=== PATIENT | female | born 1985 | race Caucasian/White ===

== ENCOUNTER 2016-10-19 06:00 | Inpatient (IN) | payer OTHER ==
[~2016-10-19 06:00] MED LIST: CALCIUM CARBONATE 500 MG (TUMS) CHEWABLE TABLET PO PRN; CITRIC ACID/SODIUM CITRATE 30 ML CUP PO PRN; Carboprost Inj 250 MCG/ML AMP IM PRN; CefOXitin Inj 2 GM in Sodium Chloride 0.9% 100 ML IV PRN; Famotidine Inj 20 MG in Normal Saline Flush 10 ML IVP PRN; LIDOCAINE W/ SODIUM BICARB 0.5 ML SYR SUBD PRN; Lidocaine 1% 10 MG/ML - 20 ML VIAL SUBCUT PRN; METHYLERGONOVINE MALEATE 0.2 MG/1 ML VIAL IM PRN; MISOPROSTOL 200 MCG TABLET RECTAL PRN; Metoclopramide Inj 10 MG/2 ML VIAL IV PRN; NORMAL SALINE 10 ML SYRINGE FLUSH IVP PRN; ONDANSETRON 4 MG/2 ML VIAL IVP PRN; OXYTOCIN 10 UNIT/1 ML IM PRN; Oxytocin 20 Units + LR 1,000 ML IV SCH; TERBUTALINE SULFATE 1 MG/1 ML SDV SUBCUT PRN; fentaNYL Inj 100 MCG/2 ML VIAL IV PRN
[2016-10-19] MEDS ORDERED: Nalbuphine Inj 20 MG/ML Ampule IVP PRN ×2 (06:44→20:49)
[2016-10-19] MEDS ORDERED: ePHEDrine Inj 5 MG in Normal Saline Flush 1 ML IVP PRN (06:44)
[2016-10-19] MEDS ORDERED: NALOXONE 0.4 MG/1 ML VIAL IVP PRN (06:44)
[2016-10-19] MEDS ORDERED: BUTORPHANOL TARTRATE 2 MG/1 ML VIAL IVP PRN (06:44)
[2016-10-19] MEDS ORDERED: Phenylephrine Inj 50 MCG in Normal Saline Flush 0.5 ML IVP PRN (06:44)
[2016-10-19] MEDS ORDERED: Naloxone Inj 0.01 MG in Normal Saline Flush 1 ML IVP PRN (06:44)
[2016-10-19] MEDS ORDERED: diphenhydrAMINE 50 MG/1 ML VIAL IVP PRN ×2 (06:44→20:49)
[2016-10-19] MEDS: Lactated Ringers-OB Dept 1,000 ML PRIMARY IV SCH ×3 (07:35→17:36)
[2016-10-19 07:53] LABS: HEMATOCRIT 36.5 % (37.0-47.0); HEMOGLOBIN 12.8 g/dL (12.0-16.0); MEAN CORPUSCULAR HGB CONC 35.1 g/dL (33-37); MEAN PLATELET VOLUME 10.9 FL (7.4-12.2); RDW COEFFICIENT OF VARIATION 12.8 % (11.5-14.5); RED BLOOD COUNT 3.76 10^6/uL (4.20-5.40); WHITE BLOOD COUNT 7.4 10^3/uL (4.8-10.8)
[2016-10-19] MEDS: Misoprostol Tab 100 MCG TAB VAGINAL SCH ×2 (07:55→22:36)
--- NOTE | 2016-10-19 17:19 | OB.PROGRES ---
Date and Time of Service: 10/19/16 @ 1230 Interval History: Pt is a 30 yo at 39 3/7 weeks by early u/s who presents for elective induction of labor at term. She has had an uncomplicated thus far, with the exception of a arrhythmia which was noted around 32 weeks. The pt saw MFM in [place] at [facility] and then another MFM at [facility]. A echocardiogram showed PAC's. She has had no evidence of tachyarrhythmias during twice weekly monitoring with the doppler. Upon admission, she was having sporadic contractions, denied vag bleeding or any leakage of fluid. Objective - Cervical Exam Cervical Exam: 60/-2 per RN at 0700 [place]: u/c every 3-4 minutes, palpating mild. Heart Rate: 125, moderate variability. No decels noted. Heart Rate Interpretation Category: Category I - Labs CBC and BMP: 10/19/16 07:35 Labs - Last 24 Hours: Laboratory Results 10/19/16 Range/Units 07:35 WBC 7.40 (4.8-10.8) 10^3/uL RBC 3.76 L (4.20-5.40) 10^6/uL Hgb 12.8 (12.0-16.0) g/dL Hct 36.5 L (37.0-47.0) % MCV 97.1 (81-99) FL MCH 34.0 H (27-31) PG MCHC 35.1 (33-37) g/dL RDW Std Deviation 43.9 (39-50) fL RDW Coeff of Meghna 12.8 (11.5-14.5) % Plt Count 164 (140-350) 10*3/uL MPV 10.9 (7.4-12.2) FL - Vital Signs Last Taken Vital Signs: Vital Signs - Last Taken Temperature 97.5 F 10/19/16 14:46 Pulse Rate 92 10/19/16 07:00 Respiratory Rate 18 10/19/16 07:00 Blood Pressure 114/66 10/19/16 07:00 Pulse Ox 98 10/19/16 07:51 Assessment and Plan - Patient Problems (1) Elective induction of labor planned Current Visit: Yes Status: Acute - Assessment / Plan Additional Assessment/Plan Details: -GBS negative. -pt has received 1 dose of cytotec and is now christian regularly. Will AROM early this afternoon. -pt plans to labor naturally for now, may get an epidural later. -h/o premature atrial contractions: I have been in touch with [facility] EMILIA Matson today (the physicians were in a meeting) and she states that the biggest issues that they have with these types of pts is that they will occasionally convert into SVT. This usually happens in-utero and not after delivery. We will get an EKG on the baby several hours after delivery if he is otherwise stable. -anticipate normal vaginal delivery.
[2016-10-19] MEDS ORDERED: LIDOCAINE MPF 2% - 5 ML (20 MG/1 ML) ONE ×2 (17:25→17:49)
--- NOTE | 2016-10-19 17:35 | CRNA.PROCE ---
Central Neuraxis Block [facility] - - Safety Measures: Site Verified - - Type of Block: Epidural ( labor, Now 5-6 cm. Membranes ruptured by Huseyin @ 1315. Requesting analgesia.) Reason for Block: Analgesia Moniters Used During Block: SPO2, NIBP Positioning: Sitting Skin Prep Used: ChloroPrep Draped: Yes Skin Infiltration - Enter Amount Used in Comment Field: 1% Xylocaine (mL): Yes ( 1.5 ml) Introducer User: None Spinal Needle Used: 18 Hustead 80 mm (AURA with saline. Epidural space times once. test dose 4 ml of 1.5% lido with epi 1:200K. Negative for SAB, negative for IV.) Local Anesthetic - Enter Amount Used in Comment Field: 1.5 % Xylocaine with Epinephrine 1:200,000 (mL): Yes (4.5 ) Number of Centimeters Catheter Threaded: 4 Bioclusive Dressing Applied: Yes - - Additional Details: Pt and staff expect rapid progress so will incrermentally dose epidural vs infusion. 5 ml Lido MPF @1715. 5 ml Lido MPF @ 1734. Not the rapid complete relief expected. 5 ml of 2% Lido mpf @1750 via epidural. 50 mcgs of Fentanyl in epidural @1750. Zana Marlow MS, [employer]
[2016-10-19] MEDS ORDERED: fentaNYL Inj 100 MCG/2 ML VIAL ONE (17:49)
[2016-10-19] MEDS ORDERED: Chloroprocaine 3% MPF (30mg/ml) 20ml vial ONE (18:30)
--- NOTE | 2016-10-19 18:47 | CRNA.PROGR ---
Anesthesia Note Anesthesia Progress Note: Dosed epidural with 6 ml of 3% Nesacaine and 50 mcgs Fentanyl at 1828.
[2016-10-19] MEDS ORDERED: Lidocaine Inj 1% 20 ML ONE ×2 (19:39→21:17)
[2016-10-19] MEDS ORDERED: METHYLERGONOVINE MALEATE 0.2 MG/1 ML VIAL IM PRN (20:49)
[2016-10-19] MEDS ORDERED: HYDROcodone-APAP 5 MG -325 MG TABLET PO PRN (20:49)
[2016-10-19] MEDS ORDERED: ONDANSETRON 4 MG/2 ML VIAL IVP PRN (20:49)
[2016-10-19] MEDS ORDERED: Ondansetron ODT Tab 4 MG TAB PO PRN (20:49)
[2016-10-19] MEDS ORDERED: ACETAMINOPHEN 325 MG TABLET PO PRN (20:49)
[2016-10-19] MEDS ORDERED: DIPH,PERTUSS,TET(ADACEL) VAC/PF 0.5 ML (Tdap) IM SCH (20:49)
[2016-10-19] MEDS ORDERED: CALCIUM CARBONATE 500 MG (TUMS) CHEWABLE TABLET PO PRN (20:49)
[2016-10-19] MEDS ORDERED: GLYCERIN/WITCH HAZEL 1 BOX TOPICAL PRN (20:49)
[2016-10-19] MEDS ORDERED: LANOLIN HPA 40 GM TUBE TOPICAL PRN (20:49)
[2016-10-19] MEDS ORDERED: BENZOCAINE/MENTHOL SPRAY 56 GM BOTTLE TOPICAL PRN (20:49)
[2016-10-19] MEDS ORDERED: diphenhydrAMINE 25 MG CAPSULE PO PRN (20:49)
[2016-10-19] MEDS ORDERED: NORMAL SALINE 10 ML SYRINGE FLUSH IVP PRN (20:49)
[2016-10-19] MEDS ORDERED: Oxytocin 20 Units + LR 1,000 ML IV SCH (20:49)
--- NOTE | 2016-10-19 20:50 | OB.DEL.SUM ---
Delivery Note Delivery Summary: Pt is a 30 yo G3 now P3 at 39 3/7 weeks, who presented for elective induction of labor at term. She received 1 dose of cytotec, and then underwent amniotomy with the return of clear fluid at 1330. She proceeded into active labor. An epidural was placed at approximately 1700. She began pushing shortly before 1900 and delivered a viable male infant in the MELI presentation at 1903. His nose and mouth were suctioned with a bulb suction and the cord was doubly clamped by myself and cut by the sister of the pt. Baby was placed on mom's chest. Cord blood was obtained for analysis. The pt had brought in a cord blood banking kit and requested that we collect blood to be sent in. This was done. I was then unable to get enough blood out to send a cord gas. The placenta delivered spontaneously and intact with a 3 vessel cord at 1920. 20 mU of pitocin were infused wide open. Fundal massage was completed by the nurse and several large clots were noted. Her bladder was drained with a red rubber catheter, approximately 150 cc of clear urine. The vagina and perineum were examined and a first degree laceration was noted and repaired in the usual fashion with 3-0 vicryl rapide suture. Fundal massage was again complete with moderate to heavy lochia. A dose of methergine 0.2 mg was given IM. The uterus firmed up nicely with massage. EBL 350cc. Apgars were 9 at 1 minute and 10 at 5 minutes. Baby weighed 7#3oz. Both mom and baby are stable and in good condition at this time. - Patient Problems (1) Elective induction of labor planned Current Visit: Yes Status: Acute
[2016-10-19] MEDS: IBUPROFEN 800 MG TABLET PO PRN (21:25)
[2016-10-20] MEDS: DOCUSATE 100 MG CAPSULE PO SCH ×2 (01:44→09:02)
[2016-10-20] MEDS: IBUPROFEN 800 MG TABLET PO PRN ×2 (04:37→12:06)
[2016-10-20 06:15] LABS: HEMATOCRIT 32.5 % (37.0-47.0); HEMOGLOBIN 11.2 g/dL (12.0-16.0); MEAN CORPUSCULAR HEMOGLOBIN 33.6 PG (27-31); MEAN CORPUSCULAR HGB CONC 34.5 g/dL (33-37); RDW COEFFICIENT OF VARIATION 12.6 % (11.5-14.5); RED BLOOD COUNT 3.33 10^6/uL (4.20-5.40); WHITE BLOOD COUNT 9.89 10^3/uL (4.8-10.8)
[2016-10-20 07:52] VITALS: RESP 16; TEMP 97.7
[2016-10-20] MEDS ORDERED: Prenatal Multivitamin Tab 1 TAB TAB PO SCH (09:00)
--- NOTE | 2016-10-20 15:50 | OB.PROGRES ---
Subjective Post Day: 1 Pain Management: PO Kirk Catheter: No Flatus: No Diet: Regular Feeding Method: Exculsively Ambulating: Yes Objective - General General Appearance: POSITIVE: No Acute Distress, Cooperative - Cardiovacular Cardiovascular Exam: POSITIVE: RRR, No Murmur Edema: No Pedal Edema Extremities: Negative Eder's - Bilaterally - Respiratory Respiratory Exam: POSITIVE: Clear to Auscultation - Bilaterally, Breathing Non Labored Assesstment / Plan (1) Elective induction of labor planned Current Visit: Yes Status: Acute Support Text: -routine cares. -breast feeding is coming along. -rh positive, rubella immune. -has received influenza and Tdap. -d/c home tonight.
== END 2016-10-20 17:00 | disposition home or self-care (01) | DRG 775 ==
LOC: OBIP 06:00
PROVIDERS: ADMIT Family Medicine; ATTEND Family Medicine
PROC: 10E0XZZ Delivery of Products of Conception, External Approach (ICD-10-PCS; principal; 2016-10-19)
PROC: 3E0P7GC Introduction of Other Therapeutic Substance into Female Reproductive, Via Natural or Artificial Opening (ICD-10-PCS; 2016-10-19)
DX: O80 Encounter for full-term uncomplicated delivery (principal); Z3A.39 39 weeks gestation of pregnancy; Z37.0 Single live birth
CPT/HCPCS: 36415; 81003; 85027; J2001; J2210; J2400; J3010; J7120

== ENCOUNTER 2018-08-27 15:50 | Observation (INO) ==
[2018-08-27] MEDS ORDERED: Sodium Chloride 0.9% 1,000 ML PRIMARY IV ONE (16:16)
[2018-08-27 16:33] LABS: BASOPHILS # (AUTO) 0.01 10*3/UL; BASOPHILS % (AUTO) 0.1 % (0-1); EOSINOPHILS # (AUTO) 0 10*3/UL; EOSINOPHILS % (AUTO) 0 % (0-8); Hematocrit [HCT] 35.2 % (37.0-47.0); Hemoglobin [HGB] 12.2 g/dL (12.0-16.0); LYMPHOCYTES # (AUTO) 1.03 10*3/uL; MEAN CORPUSCULAR HEMOGLOBIN 34.3 PG (27-31); MEAN CORPUSCULAR HGB CONC 34.7 g/dL (33-37); MEAN CORPUSCULAR VOLUME 98.9 FL (81-99); MEAN PLATELET VOLUME 10.7 FL (7.4-12.2); MONOCYTES # (AUTO) 0.42 10*3/UL (0.3-0.8); MONOCYTES % (AUTO) 4.1 % (5-15); NEUTROPHILS # (AUTO) 8.74 10*3/UL; NEUTROPHILS % (AUTO) 85.3 % (50-80); RED BLOOD COUNT 3.56 10^6/uL (4.20-5.40)
[2018-08-27 16:39] VITALS: RESP 18
[2018-08-27 16:41] LABS: PLATELET MORPHOLOGY COMMENT NORMAL MORPHOLOGY (NORM); RBC MORPHOLOGY COMMENT NORMAL MORPHOLOGY (NORM); WBC MORPHOLOGY COMMENT NORMAL MORPHOLOGY (NORM)
[2018-08-27] MEDS: D5-1/2NS 1,000 ML PRIMARY IV SCH (17:37)
[2018-08-27 17:53] LABS: BILIRUBIN,URINE NEGATIVE (NEG); CLARITY,URINE CLEAR (CLEAR); COLOR,URINE YELLOW; GLUCOSE, URINE (UA) NEGATIVE (NEG); OCCULT BLOOD,URINE NEGATIVE (NEG); PH,URINE 7.5 (5.0-8.5); PROTEIN,URINE NEGATIVE (NEG)
[2018-08-27 18:00] LABS: BACTERIA,URINE FEW; SQUAMOUS EPITHELIAL CELL,UR MODERATE; URINE SAMPLE TYPE CLEAN CATCH URINE; WBC,URINE 0-1
[2018-08-27 19:18] LABS: BLOOD UREA NITROGEN 6 mg/dL (7-22); SERUM ALBUMIN 3.2 g/dL (3.5-4.8)
[2018-08-27] MEDS ORDERED: LIDOCAINE W/ SODIUM BICARB 0.5 ML SYR SUBD PRN (19:18)
[2018-08-27] MEDS ORDERED: Ondansetron ODT Tab 4 MG TAB PO PRN (19:18)
[2018-08-27] MEDS ORDERED: CALCIUM CARBONATE 500 MG (TUMS) CHEWABLE TABLET PO PRN (19:18)
[2018-08-27] MEDS ORDERED: ONDANSETRON 4 MG/2 ML VIAL IVP PRN (19:18)
[2018-08-27] MEDS ORDERED: cefTRIAXone Inj 1 GM in Sodium Chloride 0.9% 100 ML IV SCH (19:30)
[2018-08-27] MEDS: ACETAMINOPHEN 325 MG TABLET PO PRN (20:48)
[2018-08-28] MEDS: D5-1/2NS 1,000 ML PRIMARY IV SCH ×2 (05:18→10:59)
[2018-08-28 05:39] LABS: BASOPHILS # (AUTO) 0.01 10*3/UL; BASOPHILS % (AUTO) 0.1 % (0-1); EOSINOPHILS # (AUTO) 0.01 10*3/UL; EOSINOPHILS % (AUTO) 0.1 % (0-8); Hematocrit [HCT] 31.9 % (37.0-47.0); Hemoglobin [HGB] 10.9 g/dL (12.0-16.0); LYMPHOCYTES # (AUTO) 1.22 10*3/uL; MEAN CORPUSCULAR HGB CONC 34.2 g/dL (33-37); MEAN CORPUSCULAR VOLUME 99.4 FL (81-99); MEAN PLATELET VOLUME 10.4 FL (7.4-12.2); MONOCYTES # (AUTO) 0.47 10*3/UL (0.3-0.8); MONOCYTES % (AUTO) 5.9 % (5-15); NEUTROPHILS # (AUTO) 6.16 10*3/UL; NEUTROPHILS % (AUTO) 78.1 % (50-80); RED BLOOD COUNT 3.21 10^6/uL (4.20-5.40)
[2018-08-28 05:42] LABS: PLATELET MORPHOLOGY COMMENT NORMAL MORPHOLOGY (NORM); RBC MORPHOLOGY COMMENT NORMAL MORPHOLOGY (NORM); WBC MORPHOLOGY COMMENT NORMAL MORPHOLOGY (NORM)
[2018-08-28 06:06] LABS: BLOOD UREA NITROGEN 5 mg/dL (7-22); SERUM ALBUMIN 2.9 g/dL (3.5-4.8)
[2018-08-28] MEDS: ACETAMINOPHEN 325 MG TABLET PO PRN (07:06)
[2018-08-28 08:11] VITALS: BP 108/51; TEMP 98.5; O2SAT 96
--- NOTE | 2018-08-28 08:54 | OB.PROGRES ---
Date of Service: 08/27/18 Time of Service: 19:00 Interval History: Erin is a 32 yo at 32 1/7 weeks who has been ill for several days. She contacted me by phone on 08/27 stating that she had a fever of 102, BANKS and was generally not feeling well. She denies any cough, runny nose, sinus pain, ear pain, abdominal pain, urinary sx. The BANKS tends to be worse when her temp is high. She reports no concerns except for some abdominal cramping on Thanksgiving. She believes that this is related to moving boxes around and decorating for [place]. She was seen in the office today, determined to be dehydrated and sent to L&D for IVF and further testing. Objective - Cervical Exam Cervical Exam: not checked. [place]: no contractions noted. Heart Rate: reactive, baseline 135-140, + accels, no decels noted. Heart Rate Interpretation Category: Category I - Labs CBC and BMP: 08/28/18 05:30 08/28/18 05:30 - Vital Signs Last Taken Vital Signs: Vital Signs - Last Taken Temperature 98.5 F 08/28/18 07:00 Pulse Rate 98 08/28/18 07:00 Respiratory Rate 18 08/28/18 07:00 Blood Pressure 108/51 08/28/18 07:00 Pulse Ox 96 08/28/18 07:00 Assessment and Plan - Patient Problems (1) Fever of unknown origin Current Visit: Yes Status: Acute Code(s): R50.9 - Fever, unspecified - Assessment / Plan Additional Assessment/Plan Details: -after complete review of systems and physical exam, no site of infection can be identified unless she has a mild case of meningitis with the neck pain (not rigidity and BANKS). -called with spoke with Dr. Gooden at Infect[facility] Disease in [place], who was business management consultant. He recommended blood cultures and CMP (both were already drawn), and starting empiric coverage with rocephin and vancomycin. -will continue her maintenance fluids at 125 cc/hr and start above antibiotics. -will monitor closely for any GI sx that develop or a cough. -NST twice per shift. -tylenol prn for fever/BANKS. -continue close observation.
[2018-08-28] MEDS ORDERED: Prenatal Multivitamin Tab 1 TAB TAB PO SCH (09:00)
[2018-08-28] MEDS ORDERED: Vancomycin-PHA to Dose IV ONE (09:15)
--- NOTE | 2018-08-28 10:51 | DI ---
US OB , Limited 08/28/2018 10:09 AM History: [facility] DI ^[id number] ^recent illness ^growth and MARCELL Technique: Targeted freeman scale and Doppler ultrasound of the gravid uterus was performed. Comparison: Limited OB ultrasound 08/04/2018. Presentation: Vertex. Placenta: Anterior. The cervix was not evaluated due to position. MARCELL measures 16.1 cm. Biometry: Biparietal diameter 78 mm corresponds to 31 weeks 3 day(s). Head circumference 295 mm corresponds to 32 weeks 5 day(s). Abdominal circumference 285 mm corresponds to 32 weeks 4 day(s). Femur length 64 mm corresponds to 33 weeks 1 day(s). Estimated weight is 2004 g which is 49 % for age (Hadlock criteria). HC/AC is 1.04 which is within normal limits. Cardiac Activity: 138 BPM Gestational Age (based on LMP or early OB scan): 32 weeks 2 day(s); ONEAL: 10/21/2018 Composite Sonographic Age: 32 weeks 4 day(s); ONEAL: 10/19/2018 Impression: 1. Single living intrauterine gestation with EGA based on this ultrasound of 32 weeks 4 day(s). 2. EFW is 2004 g which is 49 % for age. 3. Normal MARCELL 16.1 cm.
--- NOTE | 2018-08-28 21:40 | OB.PROGRES ---
Date of Service: 08/28/18 Time of Service: 08:45 Interval History: Feeling much better. Did take some tylenol this morning at 0730. Was able to eat 1/2 an egg, some roldan and orally hydrate, which she hasn't been able to do x 36 hours. Baby is moving well. No complaints--no cramping, contractions, vag bleeding or spotting, no abnormal discharge. Still has a dull BANKS, but nothing like she did yesterday. Objective - Cervical Exam Cervical Exam: not checked [place]: x1 this morning on her NST, pt didn't feel it. Heart Rate: 145-150, + accels, no decels noted. Moderate variability. Heart Rate Interpretation Category: Category I - Labs CBC and BMP: 08/28/18 05:30 08/28/18 05:30 - Vital Signs Last Taken Vital Signs: Vital Signs - Last Taken Temperature 98.5 F 08/28/18 07:00 Pulse Rate 98 08/28/18 07:00 Respiratory Rate 18 08/28/18 07:00 Blood Pressure 108/51 08/28/18 07:00 Pulse Ox 96 08/28/18 07:00 Assessment and Plan - Patient Problems (1) Fever of unknown origin Status: Acute Code(s): R50.9 - Fever, unspecified - Assessment / Plan Additional Assessment/Plan Details: -pt looks significantly better after starting vancomycin and rocephin last noc. Plan to continue IV meds x 72 hours pending blood culture results. -NST reactive, no concerns at this point. -will start iron for mild deficiency. -plan to check vanc trough in about 48 hours. -ok to discharge home after this morning's vancomycin so that she may get better rest at home. Return tonight for rocephin and vancomycin. -precautions discussed. DISCHARGE NOTE: Admitting diagnosis: Fever of unknown origin in third trimester. Discharge diagnosis: same, resolving. Outcome: downward trend of fever curve on rocephin and vancomycin. Disposition: home Diet: regular. Follow up: tonight for rocephin and vancomycin, will leave IV in for 72 hours. F /u in the office next week.
== END 2018-08-28 11:05 | disposition home or self-care (01) ==
LOC: OBOP 15:50 → OBIP 15:50
PROVIDERS: ADMIT Family Medicine; ATTEND Family Medicine

== ENCOUNTER 2018-10-17 05:18 | Inpatient (IN) ==
[~2018-10-17 05:18] MED LIST changes: +BUTORPHANOL TARTRATE 2 MG/1 ML VIAL IVP PRN; +FAMOTIDINE 20 MG/2 ML VIAL IVP PRN; -Famotidine Inj 20 MG in Normal Saline Flush 10 ML IVP PRN; +LIDOCAINE HCL 2 % 10 ML JELLY URO-JECT TOPICAL PRN; +Misoprostol Tab 100 MCG TAB VAGINAL PRN; +NALOXONE 0.4 MG/1 ML VIAL IVP PRN; -NORMAL SALINE 10 ML SYRINGE FLUSH IVP PRN; +Nalbuphine Inj 20 MG/ML Ampule IVP PRN; +Naloxone Inj 0.01 MG in Sodium Chloride 0.9% vial 1 ML IVP PRN; -Oxytocin 20 Units + LR 1,000 ML IV SCH; +Oxytocin 20 Units + LR 20 UNIT/1,000 ML BAG IV SCH; +Phenylephrine Inj 50 MCG in Sodium Chloride 0.9% vial 0.5 ML IVP PRN; +Zolpidem Tab 5 MG TAB PO PRN; +diphenhydrAMINE 50 MG/1 ML VIAL IVP PRN; +ePHEDrine Inj 50 MG/ML AMP IVP PRN
[2018-10-17 05:52] LABS: Hematocrit [HCT] 38.5 % (37.0-47.0); Hemoglobin [HGB] 13.1 g/dL (12.0-16.0); MEAN CORPUSCULAR HEMOGLOBIN 33.9 PG (27-31); MEAN CORPUSCULAR VOLUME 99.7 FL (81-99); MEAN PLATELET VOLUME 10.7 FL (7.4-12.2); RED BLOOD COUNT 3.86 10^6/uL (4.20-5.40)
[2018-10-17 06:54] VITALS: RESP 16
--- NOTE | 2018-10-17 09:11 | OB.PROGRES ---
Date of Service: 10/17/18 Time of Service: 09:05 Interval History: Pt is a 32 yo at 39 3/7 weeks by early /s who presented to labor and delivery this morning for elective induction of labor at term. She was intermittently christian on her own. Her cervix was 2 inner os, 3-4 outer os/50/-2/soft/posterior. She received 1 dose of cytotec and was christian more regularly. She is currently up ambulating. No complaints. Objective - Cervical Exam Cervical Exam: 2 inner os, 3-4 outer os/50/-2/soft/posterior per RN at 0630 [place]: every 2-3 minutes, palpating mild. Heart Rate: 125 baseline, moderate variability, +accels, no decels noted. Heart Rate Interpretation Category: Category I - Labs CBC and BMP: 10/17/18 05:50 - Vital Signs Last Taken Vital Signs: Vital Signs - Last Taken Temperature 98.2 F 10/17/18 08:00 Pulse Rate 97 10/17/18 08:00 Respiratory Rate 16 10/17/18 08:00 Blood Pressure 112/74 10/17/18 08:00 Pulse Ox 98 10/17/18 08:00 Assessment and Plan - Patient Problems (1) Elective induction of labor planned Current Visit: No Status: Acute Code(s): [id number] - - Assessment / Plan Additional Assessment/Plan Details: -will ambulate now, go back on the monitor around 1000. May need another dose of cytotec vs amniotomy at that time. -plans on getting an epidural when she is in more active labor. -GBS negative. -anticipate normal vaginal delivery
[2018-10-17] MEDS: Lactated Ringers-OB Dept 1,000 ML PRIMARY IV SCH ×2 (14:58→15:42)
[2018-10-17] MEDS ORDERED: Fent/Bupiv 2mcg/0.0625% Epid 250 ML ONE (15:49)
--- NOTE | 2018-10-17 15:54 | CRNA.PROCE ---
Central Neuraxis Block [facility] - - Safety Measures: Time Out Taken - - Type of Block: Epidural Reason for Block: Analgesia Moniters Used During Block: SPO2, NIBP Positioning: Sitting Skin Prep Used: ChloroPrep Draped: Yes Skin Infiltration - Enter Amount Used in Comment Field: 1% Xylocaine (mL): Yes (skin wheal) Spinal Needle Used: 18 Hustead 80 mm Local Anesthetic - Enter Amount Used in Comment Field: 1.5 % Xylocaine with Epinephrine 1:200,000 (mL): Yes (3ml) Number of Centimeters Catheter Threaded: 4 Bioclusive Dressing Applied: Yes Anesthesia Time - Other Weight: 74.389 kg Height: 5 ft 8 in Body Mass Index (BMI): 24.9
--- NOTE | 2018-10-17 15:55 | CRNA.PROGR ---
Anesthesia Time - Procedure/Recovery Time Start Date: 10/17/18 Anesthesia : Time In: 15:15 Anesthesia : Time Out: 18:36 - Other Weight: 74.389 kg Height: 5 ft 8 in Body Mass Index (BMI): 24.9 Physical Status: P2 Anesthesia Type: Epidural Obstetrics: Planned vaginal delivery w/ neuraxial labor anesthesia/analog
[2018-10-17] MEDS ORDERED: fentaNYL 2 MCG/BUPIVACAINE 0.0625%/NS 0.9% 250 ML BAG EPIDURAL SCH (16:00)
[2018-10-17] MEDS ORDERED: LIDOCAINE MPF 2% - 5 ML (20 MG/1 ML) ONE (17:02)
[2018-10-17] MEDS ORDERED: Sodium Chloride 0.9% vial 20 ML ONE (17:02)
--- NOTE | 2018-10-17 17:15 | CRNA.PROGR ---
Anesthesia Note - Progress Notes Anesthesia Progress Note: Epidural redose Pt complaining of not being comfortable, patch numbness more on the left side.. Epidural manually bolused with 20ml of 1% Lidocaine, then changed the base rate on the epidural pump to 18ml/hrs. Pt is now comfortable.
[2018-10-17] MEDS ORDERED: KETOROLAC 30 MG/1 ML VIAL ONE (17:55)
[2018-10-17] MEDS ORDERED: KETOROLAC 30 MG/1 ML VIAL IVP ONE (17:59)
[2018-10-17] MEDS ORDERED: diphenhydrAMINE 25 MG CAPSULE PO PRN (18:52)
[2018-10-17] MEDS ORDERED: BENZOCAINE/MENTHOL SPRAY 56 GM BOTTLE TOPICAL PRN (18:52)
[2018-10-17] MEDS ORDERED: Oxytocin 20 Units + LR 20 UNIT/1,000 ML BAG IV SCH (18:52)
[2018-10-17] MEDS ORDERED: ONDANSETRON 4 MG/2 ML VIAL IVP PRN (18:52)
[2018-10-17] MEDS ORDERED: ACETAMINOPHEN 325 MG TABLET PO PRN (18:52)
[2018-10-17] MEDS ORDERED: LANOLIN HPA 40 GM TUBE TOPICAL PRN (18:52)
[2018-10-17] MEDS ORDERED: Ondansetron ODT Tab 4 MG TAB PO PRN (18:52)
[2018-10-17] MEDS ORDERED: Nalbuphine Inj 20 MG/ML Ampule IVP PRN (18:52)
[2018-10-17] MEDS ORDERED: diphenhydrAMINE 50 MG/1 ML VIAL IVP PRN (18:52)
[2018-10-17] MEDS ORDERED: CALCIUM CARBONATE 500 MG (TUMS) CHEWABLE TABLET PO PRN (18:52)
[2018-10-17] MEDS ORDERED: DIPH,PERTUSS,TET(ADACEL) VAC/PF 0.5 ML (Tdap) IM ONE (18:52)
[2018-10-17] MEDS ORDERED: LIDOCAINE HCL 2 % 10 ML JELLY URO-JECT TOPICAL PRN (18:52)
[2018-10-17] MEDS ORDERED: HYDROcodone-APAP 5 MG -325 MG TABLET PO PRN (18:52)
[2018-10-17] MEDS ORDERED: GLYCERIN/WITCH HAZEL 1 BOX TOPICAL PRN (18:52)
[2018-10-18] MEDS: DOCUSATE 100 MG CAPSULE PO SCH ×2 (00:11→08:59)
[2018-10-18] MEDS: IBUPROFEN 800 MG TABLET PO PRN ×2 (00:13→08:59)
[2018-10-18 05:10] LABS: Hematocrit [HCT] 32.5 % (37.0-47.0); Hemoglobin [HGB] 11.2 g/dL (12.0-16.0); MEAN CORPUSCULAR HEMOGLOBIN 34.5 PG (27-31); MEAN CORPUSCULAR HGB CONC 34.5 g/dL (33-37); RED BLOOD COUNT 3.25 10^6/uL (4.20-5.40)
[2018-10-18 05:47] VITALS: BP 115/69; TEMP 98.2; O2SAT 96
--- NOTE | 2018-10-18 07:07 | CRNA.PROGR ---
Anesthesia Note - Progress Notes Anesthesia Progress Note: Post Labor Epidural Note Pt is sitting up in bed, comfortable, she delivered without any problems. She denies any residual issues from the epidural. Epidural has completely resolved. current VS stable. Vital Signs - Last Taken Temperature 98.2 F 10/18/18 05:46 Pulse Rate 71 10/18/18 05:46 Respiratory Rate 16 10/18/18 05:46 Blood Pressure 115/69 10/18/18 05:46 Pulse Ox 96 10/18/18 05:46
--- NOTE | 2018-10-18 08:37 | OB.DEL.SUM ---
Delivery Note Delivery Summary: Pt is a 32 yo G5 now P4 at 39 3/7 weeks by early /s who presented to labor and delivery this morning for induction of labor at term. Her was complicated by maternal fever at 32 weeks that was treated with vancomycin and rocephin x 3 days. She is GBS negative. She was 2/60/-2 upon admission. She received 1 dose of cytotec and was 3-4/70/-2 at 1300. She underwent amniotomy with return of clear fluid. Pt then slowly proceeded into active labor. An epidural was placed for analgesia. She was c/c/+2 at at 1735 and delivered a viable female infant at 1736. There was a nuchal cord x 1. Baby's nose and mouth were suctioned with the bulb suction and placed on mom's chest. Cord clamping was delayed x 45 seconds. Cord blood and cord gases were obtained for analysis. The pt had brought in a cord blood collection kit, so this was completed per her wishes. The placenta delivered spontaneously and intact with a 3 vessel cord at 1742. 20 mU of pitocin were infused. The vagina and perineum were examined and a first degree vaginal/perineal laceration was noted and repaired in the normal fashion with 3-0 vicryl rapide suture. There was excellent hemostasis. No other lacerations were noted. Apgars were 9 at 1 minute and 9 at 5 minutes. Baby weighed 7#7.4 oz. EBL 350 cc. Both mom and baby tolerated delivery well and are in stable condition at this time. - Patient Problems (1) Elective induction of labor planned Current Visit: No Status: Acute Code(s): [id number] -
[2018-10-18] MEDS ORDERED: Prenatal Multivitamin Tab 1 TAB TAB PO SCH (09:00)
--- NOTE | 2018-10-18 11:20 | OB.PROGRES ---
Subjective Post Day: 1 Pain Management: PO Kirk Catheter: No Flatus: Yes Lochia Color: [place]ra/Red Moderate 25-50 ml Diet: Regular [place] Feeding Method: Exculsively Ambulating: Yes Objective - General General Appearance: POSITIVE: No Acute Distress, Cooperative - Cardiovacular Cardiovascular Exam: POSITIVE: RRR, No Murmur Edema: No Pedal Edema Extremities: Negative Eder's - Bilaterally - Respiratory Respiratory Exam: POSITIVE: Clear to Auscultation - Bilaterally, Breathing Non Labored - Abdomen Bowel Sounds: Present Assesstment / Plan (1) Elective induction of labor planned Current Visit: No Status: Acute Assessment / Plan: -routine postpatum cares. -rubella non-immune--will need MMR vaccine prior to discharge. -rh positive. -breast feeding going well. -likely d/c home later today (after baby is 24 hours of age).
[2018-10-18] MEDS ORDERED: MMR VACCINE 12500 UNIT/0.5 ML SUBCUT ONE (16:26)
[2018-10-19] MEDS ORDERED: Lidocaine Inj 1% 20 ML ONE (12:47)
== END 2018-10-18 18:48 | disposition home or self-care (01) | DRG 807 ==
LOC: OBIP 05:18
PROVIDERS: ADMIT Family Medicine; ATTEND Family Medicine